=== PATIENT | female | born 1945 | race Caucasian/White ===

== ENCOUNTER → 2024-03-05 08:58 | Outpatient (REF) | payer MEDICARE, OTHER, SELFPAY | LOC: RAD 08:58 | PROVIDERS: ATTENDING PHYSICIAN Otolaryngology; FAMILY PHYSICIAN Family Medicine | DX: R09.82 Postnasal drip (principal) | CPT/HCPCS: 70486 ==

== ENCOUNTER 2024-05-11 06:37 | Day surgery (SDC) | payer MEDICARE, OTHER, SELFPAY ==
[2024-05-11] VITALS (10 sets, daily range): BP systolic 128–175; BP diastolic 72–94; BMI 22.8
[2024-05-11] MEDS: TYLENOL 1000 MG PO (08:31)
[2024-05-11] MEDS: NORMOSOL-R/PLASMALYTE-A 1000 IV (08:40)
[2024-05-11] MEDS: DILAUDID 0.5 MG IV ×2 (12:15→12:24)
--- NOTE | 2024-05-11 12:34 | SUR.PHASEI ---
Report from james Stephen unable to maint SAO2 on r/a, simple mask applied, ariadna well
--- NOTE | 2024-05-11 12:47 | SUR.PHASEI ---
Remains sleepy with periods of low SAO2
--- NOTE | 2024-05-11 13:08 | SUR.PHASEI ---
Awake, ariadna ice chips well. maint SAO2 on ra
== END 2024-05-11 14:19 | disposition home or self-care (01) ==
LOC: SDS 06:37
PROVIDERS: ATTENDING PHYSICIAN Otolaryngology
DX: J34.2 Deviated nasal septum (principal); J34.3 Hypertrophy of nasal turbinates; J31.0 Chronic rhinitis
CPT/HCPCS: 31243; 30140; 30520; C2618

== ENCOUNTER → 2024-06-26 07:04 | Outpatient (REF) | payer MEDICARE, OTHER, SELFPAY | LOC: PAVMRI 07:04 | PROVIDERS: ATTENDING PHYSICIAN Family Medicine | DX: G50.0 Trigeminal neuralgia (principal); H57.052 Tonic pupil, left eye | CPT/HCPCS: 70551 ==

== ENCOUNTER → 2024-07-26 07:33 | Outpatient (REF) | payer MEDICARE, OTHER, SELFPAY ==
[2024-07-26 10:03] LABS: % Basophils 0.9 % (0-2); % Eosinophils 1.8 % (0-6); % Immature Granulocytes 0.2 % (0-0.5); % Lymphocytes 38.3 % (20.5-51.1); % Monocytes 9.8 % (1.7-9.3); Absolute Eosinophils 0.1 10^3/uL (0-0.7); Absolute Lymphocytes 1.7 10^3/uL (1.2-3.4); Absolute Monocytes 0.4 10^3/uL (0.1-0.6); Absolute Neutrophils 2.2 10^3/uL (1.4-6.5); Hematocrit 40.6 % (37.0-47.0); Hemoglobin 13.4 g/dL (12.0-16.0); Mean Corpuscular Hgb 30.3 pg (27.0-31.0); Mean Corpuscular Volume 91.9 fL (81.0-99.0); Nucleated Red Blood Cells % 0 %; Platelet Count 194 10^3/uL (130-400); Red Blood Cell Count 4.42 10^6/uL (4.20-5.40); White Blood Cell Count 4.4 10^3/uL (4.8-10.8)
[2024-07-26 10:19] LABS: ALT (SGPT) 18 U/L (0-35); AST (SGOT) 23 U/L (14-36); Albumin 4.1 g/dl (3.5-5.0); Alkaline Phosphatase 66 U/L (38-126); Blood Urea Nitrogen 18 mg/dl (7-17); Calcium 9.6 mg/dl (8.4-10.2); Carbon Dioxide 29 mmol/L (22-30); Chloride 108 mmol/L (98-107); Glucose 94 mg/dl (70-99); Potassium 4.2 mmol/L (3.5-5.1); Sodium 141 mmol/L (135-145); Total Bilirubin 0.7 mg/dl (0.2-1.3); Total Protein 6.6 g/dl (6.3-8.2); eGFR > 60.00
[2024-07-26 10:23] LABS: C-Reactive Protein < 5.00 mg/L (0.0-10.00)
[2024-07-26 12:16] LABS: Erythrocyte Sed Rate 21 mm/hour (0-20)
[2024-07-26 14:14] LABS: Syphilis/T. pallidum Ab Reflex Negative (Negative)
[2024-07-28 01:54] LABS: ANA, IgG Reflex to HEp-2 None Detected (None Detected)
[2024-07-28 12:15] LABS: Lyme Antibody Screen, EIA Negative (Negative)
== END ==
LOC: HWLAB 07:33
PROVIDERS: ATTENDING PHYSICIAN Psychiatry & Neurology Neurology; FAMILY PHYSICIAN Family Medicine
DX: R51.9 Headache, unspecified (principal); H04.129 Dry eye syndrome of unspecified lacrimal gland
CPT/HCPCS: 36415; 80053; 85025; 85652; 86038; 86140; 86235; 86618; 86780

== ENCOUNTER → 2024-10-25 12:00 | Outpatient (REF) | payer MEDICARE, OTHER, SELFPAY | LOC: CLAB 12:00 | PROVIDERS: ATTENDING PHYSICIAN Physician Assistant | DX: J30.9 Allergic rhinitis, unspecified (principal) | CPT/HCPCS: 87070; 87147; 87186; 87205 ==

== ENCOUNTER → 2024-12-06 08:19 | Outpatient (REF) | payer MEDICARE, OTHER, SELFPAY ==
[2024-12-06 10:03] LABS: Hematocrit 42.9 % (37.0-47.0); Hemoglobin 14.7 g/dL (12.0-16.0); Mean Corp Hgb Conc. 34.3 g/dL (33.0-37.0); Mean Corpuscular Volume 88.1 fL (81.0-99.0); Nucleated Red Blood Cells % 0 %; Platelet Count 223 10^3/uL (130-400); Red Cell Dist. Width 12.1 % (11.5-14.5)
[2024-12-06 10:46] LABS: ALT (SGPT) 25 U/L (0-35); AST (SGOT) 29 U/L (14-36); Albumin 4.5 g/dl (3.5-5.0); Alkaline Phosphatase 89 U/L (38-126); Blood Urea Nitrogen 15 mg/dl (7-17); Calcium 9.7 mg/dl (8.4-10.2); Carbon Dioxide 28 mmol/L (22-30); Chloride 97 mmol/L (98-107); Glucose 93 mg/dl (70-99); Potassium 4.6 mmol/L (3.5-5.1); Sodium 132 mmol/L (135-145); Total Protein 7.2 g/dl (6.3-8.2); eGFR > 60.00
== END ==
LOC: HWLAB 08:19
PROVIDERS: ATTENDING PHYSICIAN Nurse Practitioner Family; FAMILY PHYSICIAN Family Medicine
DX: R30.0 Dysuria (principal); R35.0 Frequency of micturition; R51.9 Headache, unspecified
CPT/HCPCS: 36415; 80053; 85025

== ENCOUNTER → 2024-12-07 10:49 | Outpatient (REF) | payer MEDICARE, OTHER, SELFPAY ==
[2024-12-07 14:50] LABS: Urine Character Cloudy (Clear)
[2024-12-07 14:58] LABS: Urine Red Blood Cell 0-2 /HPF (0-2); Urine Squamous Cell 0-2 /LPF (Few); Urine White Cell 60-70 /HPF (0-5)
== END ==
LOC: HWLAB 10:49
PROVIDERS: ATTENDING PHYSICIAN Nurse Practitioner Family; FAMILY PHYSICIAN Family Medicine
DX: R30.0 Dysuria (principal); R35.0 Frequency of micturition
CPT/HCPCS: 81003; 81015; 87077; 87086; 87186